=== PATIENT | male | born 1975 | race Caucasian/White ===

== ENCOUNTER 2017-09-23 19:18 | Emergency (ER) | payer MEDICAID ==
[2017-09-23 19:33] VITALS: TEMP 98.1
[2017-09-23] MEDS ORDERED: HYDROCODONE/APAP 5/325 TAB PO ONE (19:39)
--- NOTE | 2017-09-23 19:47 | EDPHY ---
H & P Stated Complaint: L ankle injury after rollJixeekating accident Time Seen by Provider: 09/23/17 19:38 HPI/ROS: CHIEF COMPLAINT: Left ankle injury HISTORY OF PRESENT ILLNESS: The patient is a 42 y/o male arriving with his complaining of left ankle pain secondary to an injury at [employer]. He was doing "hitting drills" and was struck by another player in the front causing his right leg to slip forward and his left leg to slip backwards, which caught the weight of his fall. Immediate onset of severe pain. He has been unable to bear weight since the injury. He denies weakness, paresthesias, or other injuries. He is normally healthy. REVIEW OF SYSTEMS: Constitutional: No weakness Eyes: No visual changes or eye pain ENT: No dental trauma Neck: No pain or injury Respiratory: No shortness of breath Cardiac: No chest pain Gastrointestinal: No abdominal pain, no vomiting Back: No pain or injury Genitourinary: No hematuria Musculoskeletal: see HPI Skin: No lacerations Neurological: No headache, no dizziness - Personal History Current Tetanus Diphtheria and Acellular Pertussis (TDAP): Yes Tetanus Vaccine Date: < 10 YEARS - Medical/Surgical History PMH: Prior right knee ACL and meniscus repair at [facility] Hx Asthma: No Hx Chronic Respiratory Disease: No Hx Diabetes: No Hx Cardiac Disease: No Hx Renal Disease: No Hx Cirrhosis: No Hx Alcoholism: No Hx HIV/AIDS: No Hx Splenectomy or Spleen Trauma: No Other PMH: R knee - Social History Smoking Status: Light smoker Additional Social History: Lives in [place]. at bedside. Smoker. - Physical Exam Exam: General Appearance: Alert, stoic, pleasant Eyes: Pupils equal and round, no conjunctival pallor or injection ENT, Mouth: Mucous membranes moist Neck: NT, ROM without pain Respiratory: normal RR, CTA Cardiovascular: Normal capillary refill and left dorsalis pedis pulse Neurological: A&O, able to move toes, good sensation of foot Skin: Warm and dry, no abrasion/laceration Extremities: Left ankle has is swollen and tender over the lateral/medial malleolus. Other extremities are atraumatic Psychiatric: Mood and affect normal Constitutional: Initial Vital Signs Temperature (C) 36.7 C 09/23/17 19:29 Heart Rate 80 09/23/17 19:29 Respiratory Rate 16 09/23/17 19:29 Blood Pressure 133/84 H 09/23/17 19:29 O2 Sat (%) 96 09/23/17 19:29 O2 Delivery Mode Room Air Allergies/Adverse Reactions: No Known Allergies Allergy (Unverified 09/23/17 19:38) Home Medications: Medication Instructions Recorded Miscellaneous Medical Supply [NO 09/22/12 HOME MEDS] Hydrocodone/APAP 5/325 [[place] 1 - 2 tab PO Q4H PRN #20 tab 09/23/17 5/325] Medical Decision Making - Diagnostics Imaging Results: Imaging Impressions Ankle X-Ray 09/23/17 19:30 Impression: Unstable ankle fractures. Comminuted fracture of distal fibula, with displacement, and avulsion of deltoid ligament, with talar subluxation. Imaging: I viewed and interpreted images myself ED Course/Re-evaluation: This is a healthy 42 y/o male who presents with an acute left ankle injury secondary to a fall at [facility]. He has tenderness and swelling over his lateral malleolus and slight deformity of his medial malleolus. He is neurovascularly intact. X-ray shows distal left fibular fracture with mortis disruption. He will be given PO Vicodin for pain and be splinted here. Will consult with ortho. LESLIE Jean consulted with Dr. Terrazas, orthopedist, on my behalf. He reviewed films and is comfortable with a splint here and no attempts at reduction. Patient will follow up with him as an outpatient in the next few days. Reassessed patient and splint placement. The orthoglass posterior and stirrup splint was adequately immobilizing the joint and distal to the splint the patient's circulation and sensation was intact. Patient will be given prepack and prescription of [place] for use during severe pain. He understands he should not bear weight and use crutches until follow up with Dr. Terrazas. Standard fracture care instructions and follow up discussed. He and his are comfortable with this plan. Differential Diagnosis: Differential diagnosis includes though it is not limited to fracture, dislocation, tendon disruption, neurovascular compromise. - Data Points Medications Given: Discontinued Medications Hydrocodone Bitart/Acetaminophen ([place] 5/325) 2 tab PO EDNOW ONE Stop: 09/23/17 19:40 Last Admin: 11/30/17 19:42 Dose: 2 tab Hydrocodone Bitart/Acetaminophen ([place] 5/325mg Prepack#6) 1 btl TAKEBERNARDINOE EDNOW ONE Stop: 09/23/17 20:20 Last Admin: 09/23/17 20:29 Dose: 1 btl Departure - Departure Disposition: Home, Routine, Self-Care Clinical Impression: with mortis disruption Fracture of distal fibula Qualifiers: Encounter type: initial encounter Fracture type: closed Fracture morphology: other fracture Laterality: left Qualified Code(s): S82.832A - Other fracture of upper and lower end of left fibula, initial encounter for closed fracture Condition: Good Instructions: Hydrocodone/Acetaminophen (By mouth), Ankle Fracture (ED) Additional Instructions: 1. Keep splint dry and in place until follow up with orthopedist. Do not bear weight. Use crutches. 2. Apply ice to sore areas and keep ankle elevated when possible. 3. Take [place] as prescribed when needed for severe pain. This medication contains Tylenol, so be careful to not take more than 3000mg of Tylenol in any 24 hour period. 4. Follow up with Dr. Terrazas, orthopedist. Call their office tomorrow to schedule an appointment likely for early next week. 5. Return to the ED for severe pain, dramatic increase in swelling, weakness or numbness in your foot, or other worsening of condition. Referrals: [facility]UD[facility],. [Clinic] - As per Instructions Mira Terrazas MD [Medical Doctor] - As per Instructions Prescriptions: Hydrocodone/APAP 5/325 [[place] 5/325] 1 - 2 tab PO Q4H PRN #20 tab PRN Reason: Pain, Moderate Report Scribed for: Kim Rueda Report Scribed by: Zabrina Santillan Date of Report: 09/23/17 Time of Report: 19:47 Physician Review and Approval Statement: 09/23/17 19:47 Portions of this note were transcribed by a medical device engineer. I personally performed a history, physical exam, medical decision making, and confirmed accuracy of information the transcribed note.
[2017-09-23] MEDS ORDERED: HYDROCOD/APAP 5/325 PREPACK#6 BTL TAKEHOME ONE (20:19)
[2017-09-23 20:50] VITALS: BP 127/78; PULSE 85; RESP 18; O2SAT 93
== END 2017-09-23 20:49 | disposition home or self-care (01) ==
DX: S82.832A Other fracture of upper and lower end of left fibula, initial encounter for closed fracture (principal); F17.200 Nicotine dependence, unspecified, uncomplicated; W50.0XXA Accidental hit or strike by another person, initial encounter; Y99.8 Other external cause status; Y93.51 Activity, roller skating (inline) and skateboarding

== ENCOUNTER 2017-09-28 12:05 | Day surgery (SDC) | payer MEDICAID ==
--- NOTE | 2017-09-28 07:46 | GHP ---
[f rep st] PREOP HISTORY AND PHYSICAL DATE OF ADMISSION: 09/28/2017 CHIEF COMPLAINT: Left ankle pain. HISTORY OF PRESENT ILLNESS: The patient is a 42-year-old male, while roller Mayking ___ He was seen in the emergency room diagnosed with an unstable left ankle fracture. He is here for further treatment. ALLERGIES: He has no drug allergies. CURRENT MEDICATIONS: Cyclobenzaprine, diclofenac and Vicodin. PAST MEDICAL HISTORY: He has no prior medical problems. PAST SURGICAL HISTORY: No prior surgeries. SOCIAL HISTORY: Does not comment on his smoking or drinking status. PHYSICAL EXAMINATION: HEENT: Pupils equal, round, and reactive to light. CHEST: Clear to ausculta tion. HEART: Regular rate and rhythm. ABDOMEN: Soft, nontender. EXTREMITIES: His left foot is s wollen. Has ecchymosis along the heel. He remains grossly neurologically intact to the dorsal later al plantar portions of the foot with the EHL and FHL remaining intact. IMAGING: X-ray exam revealed a displaced fibular fracture, as well as widening of the mortise. ASSESSMENT AND PLAN: Patient is status post left ankle fracture. We have plans to take him to the o perating room, where he is undergoing open reduction, internal fixation of his left ankle. /[id number]/MODL
--- NOTE | 2017-09-28 10:33 | PDHPUP ---
History & Physical Update H&P update statement: This history and physical update is based on an assessment of the patient which was completed after admission or registration (within 24 hours), but prior to the surgery/procedure. H&P update: H&P reviewed & patient examined, no change in patient's condition since H&P completed
[~2017-09-28 12:05] MED LIST: ACETAMINOPHEN 500 MG TAB PO ONE; ceFAZolin 2 GM/SWFI 2 GM/20 ML SYR IVP ONE
[2017-09-28] MEDS ORDERED: LIDOCAINE 1% 2 ML INJ ID PRN (12:21)
[2017-09-28] MEDS ORDERED: LR 1,000 ML IV ONE (12:21)
[2017-09-28] MEDS ORDERED: POLYMYXIN B SULFATE 500,000 UNIT/10 ML SYR IRR ONE (13:05)
[2017-09-28] MEDS ORDERED: BUPIVACAINE 0.5% 30 ML SDV ONE (13:05)
[2017-09-28] MEDS ORDERED: ACETAMINOPHEN 500 MG TAB ONE (13:08)
[2017-09-28] MEDS ORDERED: ceFAZolin 2 GM/SWFI 20 ML SYR IVP ONE (13:09)
[2017-09-28] MEDS ORDERED: MIDAZOLAM 2 MG/2 ML VIAL IVP ONE (14:27)
--- NOTE | 2017-09-28 14:27 | PDANEPAE ---
ANE Past Medical History - Cardiovascular History Hx Hypertension: No Hx Arrhythmias: No Hx Chest Pain: No Hx Coronary Artery / Peripheral Vascular Disease: No Hx CHF / Valvular Disease: No Hx Palpitations: No - Pulmonary History Hx COPD: No Hx Asthma/Reactive Airway Disease: No Hx Recent Upper Respiratory Infection: No Hx Oxygen in Use at Home: No Hx Sleep Apnea: No Sleep Apnea Screening Result - Last Documented: Negative - Neurologic History Hx Cerebrovascular Accident: No Hx Seizures: No Hx Dementia: No - Endocrine History Hx Diabetes: No Hypothyroid: No Hyperthyroid: No Obesity: no - Renal History Hx Renal Disorders: No - Liver History Hx Hepatic Disorders: No - Neurological & Psychiatric Hx Hx Neurological and Psychiatric Disorders: No - Cancer History Hx Cancer: No - Congenital Disorder History Hx Congenital Disorders: No - GI History GERD: no Hx Gastrointestinal Disorders: No - Other Health History Other Health History: NEG - Chronic Pain History Chronic Pain: Yes (KNEES & SCIATICA) - Surgical History Prior Surgeries: R KNEE ACL ANE Review of Systems Review of Systems: - Exercise capacity METS (RN): 6 METS ANE Patient History - Allergies Allergies/Adverse Reactions: No Known Allergies Allergy (Unverified 09/23/17 19:38) - Home Medications Home Medications: Ibuprofen 09/27/17 [Last Taken 09/27/17] - NPO status NPO Since - Liquids (Date): 09/28/17 NPO Since - Liquids (Time): 10:30 NPO Since - Solids (Date): 09/27/17 NPO Since - Solids (Time): 22:00 - Anes Hx Anes Hx: no prior problems - Smoking Hx Smoking Status: Heavy smoker Marijuana use: Yes - Alcohol Use Alcohol Use: Occasionally - Family Anes Hx Family Anes Hx: neg - N/A Family Hx Anesthesia Complications: NEG ANE Labs/Vital Signs - Vital Signs Blood Pressure: 115/81 Heart Rate: 65 Respiratory Rate: 17 O2 Sat (%): 95 Height: 182.88 cm Weight: 90.718 kg ANE Physical Exam - Airway Neck exam: FROM Mallampati Score: Class 2 Mouth exam: normal dental/mouth exam - Pulmonary Pulmonary: no respiratory distress, no rales or rhonchi, clear to auscultation - Cardiovascular Cardiovascular: regular rate and rhythym, no murmur, rub, or gallop ANE Anesthesia Plan Anesthesia Plan: general endotracheal anesthesia Regional Anesthesia: adductor canal FNB, popliteal SNB
[2017-09-28] MEDS ORDERED: PROPOFOL 200 MG/20 ML VIAL ONE (14:46)
[2017-09-28] MEDS ORDERED: fentaNYL 100 MCG/2 ML INJ ONE ×3 (14:46→16:58)
[2017-09-28] MEDS ORDERED: ROPIVACAINE HCL 150 MG/30 ML INJ ONE (14:46)
[2017-09-28] MEDS ORDERED: DEXAMETHASONE 4 MG/ML VIAL ONE (14:51)
[2017-09-28] MEDS ORDERED: LIDOCAINE 2% 5 ML SDV ONE ×2 (14:51→14:54)
[2017-09-28] MEDS ORDERED: ROCURONIUM 50 MG/5 ML VIAL ONE (14:54)
[2017-09-28] MEDS ORDERED: CALCIUM CHLORIDE 1 GM/10 ML INJ ONE (15:27)
[2017-09-28] MEDS ORDERED: THROMBIN (BOVINE) 5,000 UNIT VIAL TP ONE (15:27)
[2017-09-28] MEDS ORDERED: ACETAMINOPHEN 500 MG TAB PO PRN (15:45)
[2017-09-28] MEDS ORDERED: LR 500 ML IV PRN (15:45)
[2017-09-28] MEDS ORDERED: fentaNYL 100 MCG/2 ML INJ IVP PRN (15:45)
[2017-09-28] MEDS ORDERED: HYDROCODONE/APAP 5/325 TAB PO PRN (15:45)
[2017-09-28] MEDS ORDERED: PROMETHAZINE HCL 25 MG/ML INJ IVP PRN ×2 (15:45→17:12)
[2017-09-28] MEDS ORDERED: NALOXONE HCL 0.4 MG/ML INJ IVP PRN (15:45)
[2017-09-28] MEDS ORDERED: ONDANSETRON 4 MG/2 ML VIAL IVP PRN ×2 (15:45→17:12)
[2017-09-28] MEDS ORDERED: OXYCODONE/APAP 5/325 TAB PO PRN (15:45)
[2017-09-28] MEDS ORDERED: SUGAMMADEX SODIUM 200 MG/2 ML VIAL IVP ONE (16:43)
[2017-09-28] MEDS ORDERED: LABETALOL HCL 5 MG/ML 20 ML MDV ONE (17:00)
[2017-09-28] MEDS ORDERED: TAPENTADOL HCL 50 MG TAB PO PRN (17:12)
[2017-09-28] MEDS ORDERED: BISACODYL 10 MG SUPP PR PRN (17:12)
[2017-09-28] MEDS ORDERED: MAGNESIUM HYDROXIDE 30 ML UDCUP PO PRN (17:12)
[2017-09-28] MEDS ORDERED: CYCLOBENZAPRINE 10 MG TAB PO PRN (17:12)
[2017-09-28] MEDS ORDERED: TEMAZEPAM 15 MG CAP PO PRN (17:12)
[2017-09-28] MEDS ORDERED: POLYETHYLENE GLYCOL 3350 17 GM PKT PO PRN (17:12)
[2017-09-28] MEDS ORDERED: diphenhydrAMINE 25 MG CAP PO PRN (17:12)
[2017-09-28] MEDS ORDERED: traMADol 50 MG TAB PO PRN (17:12)
[2017-09-28] MEDS ORDERED: oxyCODONE IR 5 MG TAB PO PRN (17:12)
[2017-09-28] MEDS ORDERED: DIPHENOXYLATE/ATROPINE LOMOTIL 1 TAB PO PRN (17:12)
[2017-09-28] MEDS ORDERED: ONDANSETRON DISINTEGRATING 4 MG TAB PO PRN (17:12)
[2017-09-28] MEDS ORDERED: LACTULOSE 20 GM/30 ML UDCUP PO PRN (17:12)
[2017-09-28] MEDS ORDERED: PROMETHAZINE HCL 25 MG SUPPR PR PRN (17:12)
[2017-09-28] MEDS ORDERED: METOCLOPRAMIDE 10 MG/2 ML VIAL IVP PRN (17:12)
--- NOTE | 2017-09-28 17:12 | POSTOPPROG ---
Post Op Note Date of Operation: 09/28/17 Surgeon: Mira Terrazas Anesthesiologist: tank Anesthesia: LMA, Other (Specify) Pre-op Diagnosis: l ankle fx Procedure: orif l ankle with fluoro Inf/Abcess present in the surg proc area at time of surgery?: No Depth: Deep Incisional (Fascial) EBL: 50-100
[2017-09-28] MEDS ORDERED: KETOROLAC 30 MG/1 ML SDV IVP ONE (17:25)
--- NOTE | 2017-09-28 17:28 | POSTANESTH ---
Post Anesthetic Evaluation Cardiovascular Status: Normal, Stable Respiratory Status: Normal, Stable Level of Consciousness/Mental Status: Can Participate in Eval Pain Control: Adequate, Prn Tx Ordered Nausea/Vomiting Control: Adequate, Prn Tx Ordered Complications Possibly Related to Anesthesia: None Noted
[2017-09-28] MEDS ORDERED: LR 1,000 ML IV SCH (17:30)
[2017-09-28] MEDS ORDERED: KETOROLAC 30 MG/1 ML SDV ONE (17:30)
[2017-09-28 17:59] VITALS: PULSE 70; TEMP 97.5
[2017-09-28] MEDS ORDERED: ACETAMINOPHEN 325 MG TAB PO SCH (18:00)
[2017-09-28 18:21] VITALS: RESP 16
[2017-09-28 19:33] VITALS: BP 128/90; O2SAT 95
[2017-09-28] MEDS ORDERED: FAMOTIDINE 20 MG TAB PO SCH (21:00)
[2017-09-28] MEDS ORDERED: SENNOSIDES/DOCUSATE SODIUM TAB PO SCH (21:00)
--- NOTE | 2017-09-28 22:36 | GOP ---
[f rep st] OPERATIVE REPORT DATE OF OPERATION: 09/28/2017 SURGEON: Mira Terrazas MD ANESTHESIA: LMA plus popliteal and saphenous nerve block. PREOPERATIVE DIAGNOSIS: Left ankle fracture. POSTOPERATIVE DIAGNOSIS: Left ankle fracture. PROCEDURE PERFORMED: Left ankle ORIF with fluoroscopy and syndesmotic screws. FINDINGS: INDICATIONS: This is a 42-year-old male who injured his left ankle that got caught underneath him wh ile doing roller derby. He had an unstable ankle fracture and wishes to have surgery in order to res olve the problem. DESCRIPTION OF PROCEDURE: Patient was brought to the operating room after left side had been identif ied as correct side by the patient, nurse, and physician. Once in the operating room, he was given a popliteal nerve block as well as an adductor nerve block. He was then placed under general anesthes ia using LMA. Once asleep, a tourniquet placed around the lower portion of the left thigh with the l eft lower extremity then sterilely prepped and draped in usual fashion using GSI solution. Once prep ped and draped, a long linear incision was made extending from the tip of the fibula extending proxim ally by nearly 15 cm with sharp dissection carried down through the skin and subcutaneous layers with bleeding controlled using electrocautery. An abundant amount of periosteal stripping had been done by the fracture itself. Fracture was opened. The hematoma was irrigated from the area. He had a re nt in the anterolateral portion of the ankle. He had a small cartilaginous piece of old tissue that was removed but otherwise, the ankle joint itself was thoroughly irrigated with antibiotic solution i n order to remove some of the hematoma from within the ankle joint. The fracture site was able to be reduced and held in place with bone reduction forceps. A 7-hole plate was passed beneath the forcep s and used to bridge the fracture with a cancellous screw placed in the tip of the lateral malleolus and a cortical screw placed in the proximal fragment. With the bone forceps still in place, an inner fragmentary screw was placed in an anterosuperior to a posteroinferior position crossing the fractur e plane in a perpendicular direction. Once achieving good purchase, a locking screw was placed into the distal fragment and a locking screw placed in the proximal fragment. Pictures were taken under f luoroscopy, was used to ensure proper positioning. Once this was ensured, attempt was made to check for instability, was noted to have significant widening along the medial mortise. Therefore, it was decided to do syndesmotic screws. Two syndesmotic screws were passed through the plate through the f ibula and into the tibia while the ankle was being held in a 90-degree position and pressure was bein g placed to reduced the distal tib-fib joint. Once the 2 syndesmotic screws were in place, the ankle was tested again to check stability and was noted to be much more stable. Once finished, the wound was thoroughly irrigated with antibiotic solution, was closed in layers to include 0 Vicryl suture fo r the fascial layers with plasma gel placed along the fracture site and into the ankle itself, 2-0 Vi cryl suture used for the subcutaneous layers and a 3-0 Prolene suture in a running subcuticular stitc h for the skin. Tourniquet had been released at 64 minutes. The wound was then dressed with Steri-S trips, Xeroform, 4 x 4, wrapped in Kerlix. Leg was completely undraped in the operating room. Tourn iquet was removed from the thigh and an Quinton wrap placed around the foot and ankle. He was then place d in a Cam walker boot. He was woken up, extubated, transferred onto a stretcher, and sent to [facility] room in good condition. TOURNIQUET TIME: 64 minutes. /[id number]/MODL
== END 2017-09-28 18:55 | disposition home or self-care (01) ==
LOC: FSGY 12:05
PROVIDERS: ATTEND Orthopaedic Surgery
PROC: 0QSK04Z Reposition Left Fibula with Internal Fixation Device, Open Approach (ICD-10-PCS; principal; 2017-09-28 13:45)
DX: S82.62XA Displaced fracture of lateral malleolus of left fibula, initial encounter for closed fracture (principal); F17.200 Nicotine dependence, unspecified, uncomplicated; W23.0XXA Caught, crushed, jammed, or pinched between moving objects, initial encounter; Y93.51 Activity, roller skating (inline) and skateboarding
CPT/HCPCS: C1713; J0690; J1100; J1885; J2250; J2704; J2795; J3010; J3490

== ENCOUNTER 2017-12-28 10:24 | Day surgery (SDC) | payer MEDICAID ==
--- NOTE | 2017-12-24 11:57 | GHP ---
[f rep st] PREOP HISTORY AND PHYSICAL DIAGNOSIS: Status post left ankle open reduction internal fixation with retained hardware. PLANNED SURGERY: Left ankle removal of syndesmosis screws. HPI: Patient is a 42-year-old male who sustained a left ankle fracture approximately 3 months ago. He underwent ORIF of the ankle, and after a good course of healing, he is now ready to have the hardware removed. PAST MEDICAL HISTORY: Negative. PAST SURGICAL HISTORY: ORIF of the left ankle. MEDICATIONS: Diclofenac 50 mg as needed and cyclobenzaprine 10 mg as needed. ALLERGIES: No known drug allergies. SOCIAL HISTORY: Occasional alcohol use. No tobacco or drug use. PHYSICAL EXAM: VITALS: He is 6 feet, 200 pounds. Pulse is 70 beats per minute. Blood pressure is 130/78, respirations 16. GENERAL: He is alert and oriented. NECK: Supple. CARDIAC EXAM: Shows a regular rate and rhythm. Normal S1, S2. PULMONARY: Lungs are clear bilaterally. ABDOMEN: Exam shows normoactive bowel sounds. Nontender, nondistended. LEFT LOWER EXTREMITY: Examination of the left ankle shows that the incision is well healed from prior surgery. He has near full range of motion and neurovascularly intact. There is no evidence of DVT. ASSESSMENT/PLAN: Patient presents with left ankle retained hardware from prior ORIF. Plan is to remove the 2 syndesmotic screws from the ankle next Wednesday. The risks of the procedure were discussed in detail with the patient today and he accepts these. He will be full weightbearing after surgery. /[id number]/MODL MTDD
[2017-12-28] MEDS ORDERED: LIDOCAINE 1% 2 ML INJ ID PRN (10:39)
[2017-12-28] MEDS ORDERED: LR 1,000 ML IV ONE (10:39)
[2017-12-28] MEDS ORDERED: POLYMYXIN B SULFATE 500,000 UNIT/10 ML SYR IRR ONE (10:55)
[2017-12-28] MEDS ORDERED: BACITRACIN 50,000 UNITS/10 ML SYR IRR ONE (10:55)
[2017-12-28] MEDS ORDERED: BUPIVACAINE 0.5% 10 ML SDV ONE (10:55)
[2017-12-28 11:24] VITALS: PULSE 77
[2017-12-28] MEDS ORDERED: ceFAZolin 2 GM/SWFI 2 GM/20 ML SYR IVP ONE (12:49)
[2017-12-28] MEDS ORDERED: MIDAZOLAM 2 MG/2 ML VIAL IVP ONE (12:51)
--- NOTE | 2017-12-28 12:51 | PDANEPAE ---
ANE History of Present Illness ankle screw ANE Past Medical History - Cardiovascular History Hx Hypertension: No Hx Arrhythmias: No Hx Chest Pain: No Hx Coronary Artery / Peripheral Vascular Disease: No Hx CHF / Valvular Disease: No Hx Palpitations: No - Pulmonary History Hx COPD: No Hx Asthma/Reactive Airway Disease: No Hx Recent Upper Respiratory Infection: No Hx Oxygen in Use at Home: No Hx Sleep Apnea: Yes Sleep Apnea Screening Result - Last Documented: Negative - Neurologic History Hx Cerebrovascular Accident: No Hx Seizures: No Hx Dementia: No - Endocrine History Hx Diabetes: No - Renal History Hx Renal Disorders: No - Liver History Hx Hepatic Disorders: No - Neurological & Psychiatric Hx Hx Neurological and Psychiatric Disorders: No - Cancer History Hx Cancer: No - Congenital Disorder History Hx Congenital Disorders: No - GI History Hx Gastrointestinal Disorders: No - Other Health History Other Health History: none - Chronic Pain History Chronic Pain: Yes (KNEES & SCIATICA) - Surgical History Prior Surgeries: 09/28/17 left ankle ORIF with Mk. R KNEE ACL ANE Review of Systems Review of Systems: - Exercise capacity METS (RN): 6 METS ANE Patient History - Allergies Allergies/Adverse Reactions: No Known Allergies Allergy (Verified 12/27/17 17:13) - Home Medications Home Medications: NK [No Known Home Meds] 12/27/17 [Last Taken Unknown] - NPO status NPO Since - Liquids (Date): 12/28/17 NPO Since - Liquids (Time): 07:30 NPO Since - Solids (Date): 12/27/17 NPO Since - Solids (Time): 22:30 - Anes Hx Anes Hx: no prior problems - Smoking Hx Smoking Status: Heavy smoker - Alcohol Use Alcohol Use: Heavy - Family Anes Hx Family Anes Hx: none Family Hx Anesthesia Complications: none ANE Labs/Vital Signs - Vital Signs Blood Pressure: 130/84 Heart Rate: 77 Respiratory Rate: 14 O2 Sat (%): 94 Height: 182.88 cm Weight: 90.718 kg ANE Physical Exam - Airway Neck exam: FROM Mallampati Score: Class 2 Mouth exam: normal dental/mouth exam Mouth image: 1 - missing - Pulmonary Pulmonary: no respiratory distress, clear to auscultation - Cardiovascular Cardiovascular: regular rate and rhythym, no murmur, rub, or gallop - ASA Status ASA Status: II ANE Anesthesia Plan Anesthesia Plan: GA w LMA
[2017-12-28] MEDS ORDERED: MIDAZOLAM 2 MG/2 ML VIAL ONE (12:53)
[2017-12-28] MEDS ORDERED: ceFAZolin 2 GM/SWFI 20 ML SYR IVP ONE (12:53)
[2017-12-28] MEDS ORDERED: fentaNYL 100 MCG/2 ML INJ ONE ×2 (12:54→14:06)
[2017-12-28] MEDS ORDERED: PROPOFOL 200 MG/20 ML VIAL ONE ×2 (12:54)
[2017-12-28] MEDS ORDERED: LIDOCAINE 2% 100 MG/5 ML SYR ONE (12:55)
[2017-12-28] MEDS ORDERED: HYDROGEN PEROXIDE 236 ML BOTTLE TP ONE (13:14)
[2017-12-28] MEDS ORDERED: ACETAMINOPHEN 325 MG TAB PO PRN (13:42)
[2017-12-28] MEDS ORDERED: ACETAMINOPHEN 500 MG TAB PO PRN (13:42)
[2017-12-28] MEDS ORDERED: ONDANSETRON 4 MG/2 ML VIAL IVP PRN (13:42)
[2017-12-28] MEDS ORDERED: OXYCODONE/APAP 5/325 TAB PO PRN (13:42)
[2017-12-28] MEDS ORDERED: fentaNYL 100 MCG/2 ML INJ IVP PRN (13:42)
[2017-12-28] MEDS ORDERED: NALOXONE HCL 0.4 MG/ML INJ IVP PRN (13:42)
[2017-12-28] MEDS ORDERED: KETOROLAC 15 MG/1 ML SDV IVP ONE (13:42)
[2017-12-28] MEDS ORDERED: HYDROCODONE/APAP 5/325 TAB PO PRN ×2 (13:42)
--- NOTE | 2017-12-28 13:42 | POSTOPPROG ---
Post Op Note Date of Operation: 12/28/17 Surgeon: Mira Terrazas Anesthesiologist: [email or web address] Pre-op Diagnosis: s/p ankle orif Procedure: l ankle swati Inf/Abcess present in the surg proc area at time of surgery?: No Depth: Deep Incisional (Fascial) EBL: 50-100
--- NOTE | 2017-12-28 13:43 | POSTANESTH ---
Post Anesthetic Evaluation Cardiovascular Status: Normal, Stable, Similar to Pre-Op Cond Respiratory Status: Normal, Stable, Similar to Pre-op Cond. Level of Consciousness/Mental Status: Can Participate in Eval, Alert and Oriented Pain Control: Adequate, Prn Tx Ordered Nausea/Vomiting Control: Adequate, Prn Tx Ordered Complications Possibly Related to Anesthesia: None Noted
[2017-12-28] MEDS ORDERED: HYDROCODONE/APAP 5/325 TAB ONE (14:06)
[2017-12-28] MEDS ORDERED: KETOROLAC 15 MG/1 ML SDV ONE (14:16)
[2017-12-28 14:35] VITALS: TEMP 97.7
[2017-12-28 14:36] VITALS: RESP 17; O2SAT 95
[2017-12-28 14:51] VITALS: BP 122/76
--- NOTE | 2017-12-28 17:00 | GOP ---
[f rep st] OPERATIVE REPORT DATE OF OPERATION: 12/28/2017 SURGEON: Mira Terrazas MD ANESTHESIA: By LMA. PREOPERATIVE DIAGNOSIS: Status post left ankle open reduction and internal fixation. POSTOPERATIVE DIAGNOSIS: Status post left ankle open reduction and internal fixation. PROCEDURE PERFORMED: Left ankle removal of hardware x2, with fluoroscopy. FINDINGS: INDICATIONS: This is a 42-year-old male who underwent a left ankle open reduction internal fixation several months ago that healed without issue. He had 2 syndesmotic screws and would like them removed before they break. DESCRIPTION OF PROCEDURE: Patient brought to the operating room after the left side had been identif ied as correct side by the patient, nurse and physician. Once in the operating room, he was placed un john general anesthesia using an LMA. Once asleep, a tourniquet placed around the upper portion of the left thigh with the left lower extremity sterilely prepped and draped in usual fashion using GSI alexia ution. Once prepped and draped, limb was exsanguinated, tourniquet inflated to 250 mmHg. Fluoroscopy was used to identify the locations of the screw heads associated with the 2 cancellous sc rews. Once these were located, incisions were made approximately 1 cm long over each of the areas of the screws, with sharp dissection carried down through the skin and subcutaneous layers, blunt dissec tion down onto the actual metal. A small frag screwdriver was used to remove the 2 cancellous screws without difficulty. House curette was then used into the holes to irritate the bone in order to facil itate healing. Fluoroscopy was again used to ensure the proper screws had been removed. Once this was ensured, both wounds were thoroughly irrigated with antibiotic solution. They were closed in layers to include 2-0 Vicryl suture for the subcutaneous layers and a 3-0 Monocryl suture in a running subcu ticular stitch for the skin. 10 cc of Marcaine was infused around the wounds themselves. The tourniqu et was released at 9 minutes. The wounds were then dressed with Steri-Strips, Xeroform, 4 x 4's, and cast padding. Leg was completely undraped in the operating room, tourniquet removed from the thigh, a nd an Quinton wrap placed around the foot and ankle. He was then woken up, transferred onto a bed, and se nt to recovery room in good condition. TOURNIQUET TIME: 9 minutes. /[id number]/MODL
== END 2017-12-28 14:54 | disposition home or self-care (01) ==
LOC: FSGY 10:24
PROVIDERS: ATTEND Orthopaedic Surgery
PROC: 0QPK04Z Removal of Internal Fixation Device from Left Fibula, Open Approach (ICD-10-PCS; principal; 2017-12-28 11:45)
DX: Z47.2 Encounter for removal of internal fixation device (principal); S82.62XS Displaced fracture of lateral malleolus of left fibula, sequela
CPT/HCPCS: J0690; J1885; J2001; J2250; J2704; J3010